=== PATIENT | female | born 1965 | race Caucasian/White ===

== ENCOUNTER 2017-09-28 12:35 | Emergency (ER) | payer MEDICAID ==
[~2017-09-28] VITALS: Ht 167.6 cm; Wt 84.8 kg
[~2017-09-28 12:35] MED LIST: CIPROFLOXACIN500 MG PO; FLA500 PO; FLO4 PO; LAC PO; MERREM IV1 GM IV; PRI20 PO; ZOC20 PO
[2017-09-28 14:10] VITALS: BP 110/73
== END 2017-09-28 14:28 | disposition home or self-care (01) ==
LOC: ED 12:35
DX: M54.5 Low back pain (principal); Z90.710 Acquired absence of both cervix and uterus; X50.0XXA Overexertion from strenuous movement or load, initial encounter; X50.9XXA Other and unspecified overexertion or strenuous movements or postures, initial encounter; Y93.89 Activity, other specified; Y92.89 Other specified places as the place of occurrence of the external cause; Y99.8 Other external cause status
CPT/HCPCS: J1885

== ENCOUNTER 2017-12-06 21:19 | Inpatient (IN) | payer MEDICAID ==
[~2017-12-06] VITALS: Ht 165.1 cm; Wt 82.6 kg
[2017-12-06 21:25] VITALS: Ht 165.1 cm; Wt 82.6 kg
[2017-12-06 22:00] LABS: BASOPHIL % 0.6 % (0-2); PLATELET COUNT 302 x10^3mcL (130-400); RED CELL DISTRIBUTION WIDTH 13.1 % (11.5-14.5)
[2017-12-06 22:05] LABS: CALCIUM 9.7 mg/dL (8.5-10.1); CARBON DIOXIDE 25.1 mmol/L (21-32); CHLORIDE SERUM 103 mmol/L (98-107); CREATININE SERUM 0.8 mg/dL (0.6-1.0); GFR1 > 60 mL/min; GLUCOSE SERUM 173 mg/dL (74-106); SODIUM SERUM 137 mmol/L (136-145)
[2017-12-06 22:09] LABS: ALBUMIN 4.4 g/dL (3.4-5.0); ALKALINE PHOSPHATASE 119 U/L (46-116); ALT/SGPT 24 U/L (14-59); AST/SGOT 15 U/L (15-37); BILIRUBIN TOTAL 0.7 mg/dL (0.20-1.00)
[2017-12-06 22:11] LABS: TOTAL PROTEIN, SERUM 8.4 g/dL (6.4-8.2)
[2017-12-07] MEDS ORDERED: METFORMIN500 M1 (00:34)
[2017-12-07 00:43] LABS: CHOLESTEROL/HDL RATIO 5.1; MAGNESIUM 1.9 mg/dL (1.8-2.4); PHOSPHOROUS 3.8 mg/dL (2.5-4.9)
[2017-12-07 00:52] LABS: T3 TOTAL 1.05 ng/mL
[2017-12-07 00:57] LABS: FREE T4 1.09 ng/dL (0.76-1.46); FREE THYROXINE INDEX 2.8 ug/dL (1.4-4.5); T4(THYROXINE) 8.7 ug/dL (4.7-13.3)
[2017-12-07 01:09] LABS: UA SPECIFIC GRAVITY <=1.005 (1.005-1.035); microscopic required? YES; urine erythrocyte TRACE (NEGATIVE)
[2017-12-07 01:23] LABS: AMPHETAMINE QUAL UR NONE DETECTED (See below)
[2017-12-07 01:53] VITALS: BP 121/78
[2017-12-07 05:51] VITALS: BP 110/62
[2017-12-07 06:20] LABS: BASOPHIL % 0.4 % (0-2); PLATELET COUNT 241 x10^3mcL (130-400); RED CELL DISTRIBUTION WIDTH 12.2 % (11.5-14.5)
[2017-12-07 06:28] LABS: CALCIUM 8.7 mg/dL (8.5-10.1); CARBON DIOXIDE 25.4 mmol/L (21-32); CHLORIDE SERUM 107 mmol/L (98-107); CREATININE SERUM 0.7 mg/dL (0.6-1.0); GFR1 > 60 mL/min; GLUCOSE SERUM 131 mg/dL (74-106); MAGNESIUM 1.9 mg/dL (1.8-2.4); PHOSPHOROUS 3.4 mg/dL (2.5-4.9); POTASSIUM SERUM 3.7 mmol/L (3.5-5.1); SODIUM SERUM 141 mmol/L (136-145)
[2017-12-07 08:07] VITALS: BP 115/71
[2017-12-07 12:01] VITALS: BP 103/65
[2017-12-07 16:44] VITALS: BP 112/68
[2017-12-07] MEDS ORDERED: METOPROLOL TART25 M1 PO (17:23)
[2017-12-07 20:29] VITALS: BP 128/73
[2017-12-08 05:07] VITALS: BP 109/72
[2017-12-08 06:27] LABS: CALCIUM 8.6 mg/dL (8.5-10.1); CARBON DIOXIDE 27.4 mmol/L (21-32); CHLORIDE SERUM 106 mmol/L (98-107); CREATININE SERUM 0.7 mg/dL (0.6-1.0); GFR1 > 60 mL/min; GLUCOSE SERUM 140 mg/dL (74-106); MAGNESIUM 1.9 mg/dL (1.8-2.4); POTASSIUM SERUM 4.3 mmol/L (3.5-5.1); SODIUM SERUM 140 mmol/L (136-145)
[2017-12-08 06:40] LABS: BASOPHIL % 0.5 % (0-2); PLATELET COUNT 225 x10^3mcL (130-400)
[2017-12-08 08:02] VITALS: BP 113/70
[2017-12-08 12:25] VITALS: BP 106/73
[2017-12-08 16:39] VITALS: BP 103/67
== END 2017-12-08 17:14 | disposition home or self-care (01) | DRG 201 ==
LOC: ED 21:19 → DU 12-07 00:05
PROVIDERS: Emergency Medicine; Family Medicine
DX: I47.1 Supraventricular tachycardia (principal); D68.69 Other thrombophilia; E11.65 Type 2 diabetes mellitus with hyperglycemia; I48.0 Paroxysmal atrial fibrillation; E78.5 Hyperlipidemia, unspecified; I10 Essential (primary) hypertension; Z68.30 Body mass index [BMI] 30.0-30.9, adult; Z79.84 Long term (current) use of oral hypoglycemic drugs
CPT/HCPCS: 82962; 83880; 84439; 85378; J0153; J7030; Q0092

== ENCOUNTER 2018-06-28 16:27 | Inpatient (IN) | payer MEDICAID ==
[~2018-06-28] VITALS: Ht 167.6 cm; Wt 86.2 kg
[~2018-06-28 16:27] MED LIST changes: +METFORMIN500 M1; +METOPROLOL TART25 M1 PO
[2018-06-28 16:42] VITALS: Ht 167.6 cm; Wt 86.2 kg
[2018-06-28 17:37] LABS: BASOPHIL % 0.6 % (0-2); PLATELET COUNT 242 x10^3mcL (130-400); RED CELL DISTRIBUTION WIDTH 13.8 % (11.5-14.5)
[2018-06-28 18:18] LABS: FREE T4 0.98 ng/dL (0.76-1.46); FREE THYROXINE INDEX 2.4 ug/dL (1.4-4.5)
[2018-06-28 18:19] LABS: AMPHETAMINE QUAL UR NONE DETECTED (See below)
[2018-06-28] MEDS ORDERED: LISINOPRIL2.5 MG (18:22)
[2018-06-28] MEDS ORDERED: SIMVASTATIN10 M1 (18:22)
[2018-06-28] MEDS ORDERED: MASON NATURAL1000 IU (18:23)
[2018-06-28] MEDS ORDERED: GOOD SENSE OMEP20 MG (18:23)
[2018-06-28 18:29] LABS: CALCIUM 8.4 mg/dL (8.5-10.1); CARBON DIOXIDE 22.5 mmol/L (21-32); CHLORIDE SERUM 108 mmol/L (98-107); CREATININE SERUM 0.8 mg/dL (0.6-1.0); GFR1 > 60 mL/min; GLUCOSE SERUM 143 mg/dL (74-106); POTASSIUM SERUM 4.2 mmol/L (3.5-5.1); SODIUM SERUM 142 mmol/L (136-145)
[2018-06-28 18:33] LABS: ALBUMIN 3.5 g/dL (3.4-5.0); ALKALINE PHOSPHATASE 101 U/L (46-116); ALT/SGPT 30 U/L (14-59); AST/SGOT 21 U/L (15-37); BILIRUBIN TOTAL 0.5 mg/dL (0.20-1.00); MAGNESIUM 1.5 mg/dL (1.8-2.4); TOTAL PROTEIN, SERUM 6.8 g/dL (6.4-8.2)
[2018-06-28 18:36] LABS: T3 TOTAL 1.1 ng/mL
[2018-06-28 20:35] LABS: UA SPECIFIC GRAVITY 1.015 (1.005-1.035); microscopic required? YES; urine erythrocyte TRACE (NEGATIVE)
[2018-06-28 20:52] LABS: PHOSPHOROUS 3.4 mg/dL (2.5-4.9)
[2018-06-28 20:54] LABS: CHOLESTEROL/HDL RATIO 5.1
[2018-06-28 21:37] VITALS: BP 99/66
[2018-06-29] VITALS (7 sets, daily range): BP systolic 96–119; BP diastolic 53–77
[2018-06-29 07:34] LABS: CALCIUM 8.6 mg/dL (8.5-10.1); CARBON DIOXIDE 24.9 mmol/L (21-32); CHLORIDE SERUM 107 mmol/L (98-107); CREATININE SERUM 0.8 mg/dL (0.6-1.0); GFR1 > 60 mL/min; GLUCOSE SERUM 143 mg/dL (74-106); MAGNESIUM 1.9 mg/dL (1.8-2.4); PHOSPHOROUS 3.9 mg/dL (2.5-4.9); POTASSIUM SERUM 4.1 mmol/L (3.5-5.1); SODIUM SERUM 141 mmol/L (136-145)
[2018-06-29 08:58] LABS: PLATELET COUNT 236 x10^3mcL (130-400); RED CELL DISTRIBUTION WIDTH 13.6 % (11.5-14.5)
[2018-06-29 08:59] LABS: BASOPHIL % 0.4 % (0-2)
[2018-06-30 06:12] VITALS: BP 111/73
[2018-06-30 06:31] LABS: CALCIUM 8.8 mg/dL (8.5-10.1); CARBON DIOXIDE 23.1 mmol/L (21-32); CHLORIDE SERUM 106 mmol/L (98-107); CREATININE SERUM 0.7 mg/dL (0.6-1.0); GFR1 > 60 mL/min; GLUCOSE SERUM 141 mg/dL (74-106); MAGNESIUM 1.8 mg/dL (1.8-2.4); PHOSPHOROUS 4.3 mg/dL (2.5-4.9); POTASSIUM SERUM 3.9 mmol/L (3.5-5.1); SODIUM SERUM 140 mmol/L (136-145)
[2018-06-30 06:43] LABS: BASOPHIL % 0.6 % (0-2); PLATELET COUNT 226 x10^3mcL (130-400); RED CELL DISTRIBUTION WIDTH 13.4 % (11.5-14.5)
[2018-06-30 09:25] VITALS: BP 118/71
[2018-06-30 12:20] VITALS: BP 107/62
[2018-06-30 17:19] VITALS: BP 94/72
== END 2018-06-30 19:06 | disposition short-term general hospital (02) | DRG 201 ==
LOC: ED 16:27 → DU 20:16
PROVIDERS: Emergency Medicine; ADMIT Internal Medicine
PROC: 5A2204Z Restoration of Cardiac Rhythm, Single (ICD-10-PCS; principal; 2018-06-28)
DX: I47.1 Supraventricular tachycardia (principal); N17.0 Acute kidney failure with tubular necrosis; I21.A1 Myocardial infarction type 2; E83.42 Hypomagnesemia; E11.65 Type 2 diabetes mellitus with hyperglycemia; N39.0 Urinary tract infection, site not specified; E83.51 Hypocalcemia; I10 Essential (primary) hypertension; E78.5 Hyperlipidemia, unspecified; E66.9 Obesity, unspecified; Z68.31 Body mass index [BMI] 31.0-31.9, adult; Z79.84 Long term (current) use of oral hypoglycemic drugs
CPT/HCPCS: 82962; 83880; 84439; J0153; J0696; J1642; J1644; J3475; J7030; Q0092